=== PATIENT | male | born 1960 | race Caucasian/White ===

== ENCOUNTER 2020-11-02 22:56 | Inpatient (IN) | payer BC, SELFPAY ==
[2020-11-03 00:22] VITALS: BMI 36.6
[2020-11-03 01:56] LABS: PTT 27.2 sec (22.9-36.1); Prothrombin Time 13.5 sec (12.0-14.7)
[2020-11-03 02:10] LABS: ALT (SGPT) 14 U/L (8-55); AST (SGOT) 17 U/L (5-34); Albumin 3.7 g/dL (3.4-4.8); Alkaline Phosphatase 95 U/L (40-110); Anion Gap 14 mmol/L (10-20); BUN (Urea Nitrogen) 15 mg/dL (8.4-25.7); Bilirubin, Total 0.7 mg/dL (0.2-1.2); Calc. Creatinine Clearance 146 mL/min (70-130); Calcium 8.5 mg/dL (7.8-10.44); Carbon Dioxide 23 mmol/L (23-31); Chloride 105 mmol/L (98-107); Globulin 3.1 g/dL (2.4-3.5); Glucose 113 mg/dL (80-115); Magnesium 2.3 mg/dL (1.6-2.6); Potassium 4.1 mmol/L (3.5-5.1); Protein, Total 6.8 g/dL (5.8-8.1); Sodium 138 mmol/L (136-145)
[2020-11-03 02:17] LABS: #Eosinphils 0.1 thou/uL (0.0-0.7); #Lymphocytes 1.8 thou/uL (1.20-3.40); #Monocytes 0.9 thou/uL (0.11-0.59); #Neutrophils 3.6 thou/uL (1.40-6.50); %Basophils 0.3 % (0.0-1.0); %Eosinophils 1.7 % (0.0-10.0); %Lymphocytes 28.5 % (21.0-51.0); %Monocytes 14.6 % (0.0-10.0); Hemoglobin 15.3 g/dL (14.0-18.0); Mean Corpuscular HGB CONC 35.2 g/dL (32.0-36.0); Mean Corpuscular Hemoglobin 29.6 pg (27.0-31.0); Platelet Count Less than 2 thou/uL (130-400); Platelet Morphology Comment Appears Decreased; RBC Distribution Width 12.4 % (11.5-14.5); Red Blood Cell (RBC) Count 5.16 mill/uL (4.70-6.10); Reflex for Review?? NO; White Blood Cell (WBC) Count 6.5 thou/uL (4.8-10.8)
[2020-11-03] MEDS ORDERED: HYDROcodone/Acetaminophen 5/325 mg Tablet PO PRN (02:31)
[2020-11-03] MEDS ORDERED: Ondansetron PF 4 MG/2 ML Vial IVP PRN (02:31)
[2020-11-03] MEDS ORDERED: hydrALAZINE 20 MG/ML VIAL SLOW IVP PRN (02:31)
[2020-11-03] MEDS ORDERED: Labetalol HCl 100 MG/20 ML VIAL SLOW IVP PRN (02:31)
[2020-11-03] MEDS ORDERED: cloNIDine 0.1 MG TAB PO PRN (02:31)
[2020-11-03] MEDS ORDERED: Promethazine HCl 12.5 MG in Sodium Chloride 0.9% 50 ML IVPB PRN (02:31)
[2020-11-03] MEDS ORDERED: Electrolyte Replacement Protocol 1 EACH FS PRN (02:45)
--- NOTE | 2020-11-03 02:45 | PDOC.HHP ---
Hospitalist HPI - History of Present Illness Rash History of Present Illness: Patient is a 60 year old male with PMH metastatic prostate cancer, HTN who presents as transfer from [facility] for rash, thrombocytopenia. Patient has history of metastatic prostate cancer diagnosed about 2 years ago in [facility], he had a prostate surgery at that time but also had metastases to spine for which he declined treatment and has not followed up. Today at work he noticed bruising in arms and a petechial rash on legs, presented for evaluation. At [facility] ED, labs significant for WBC of 6, platelet count of 5, patient transferred here for further workup and care. Hospitalist ROS - Review of Systems Constitutional: reports: weakness, malaise. denies: fever, chills, sweats, other Eyes: denies: pain, vision change, conjunctivae inflammation, eyelid inflammation, redness, other ENT: denies: ear pain, ear discharge, nose pain, nose discharge, nose congestion, mouth pain, mouth swelling, throat pain, throat swelling, other Respiratory: denies: cough, dry, shortness of breath, hemoptysis, SOB with excertion, pleuritic pain, sputum, wheezing, other Cardiovascular: denies: chest pain, palpitations, orthopnea, paroxysmal noc. dyspnea, edema, light headedness, other Gastrointestinal: denies: nausea, vomiting, abdominal pain, diarrhea, constipation, melena, hematochezia, other Genitourinary: denies: dysuria, frequency, incontinence, hematuria, retention, other Musculoskeletal: denies: neck pain, shoulder pain, arm pain, back pain, hand pain, leg pain, foot pain, other Skin: reports: rash, bruising Neurological: denies: weakness, numbness, incoordination, change in speech, confusion, seizures, other All other systems reviewed; all pertinent +/- noted in HPI/Subj - Medication Medications: HTN medications, patient is not compliant with them Hospitalist History - Past Medical History Other Medical History: HTN metastatic prostate cancer - Past Surgical History Other Surgical History: prostate surgery - Family History Family History: reports: no pertinent history - Social History Smoking Status: Never smoker Alcohol: reports: None Drugs: reports: none - Exam General Appearance: NAD, awake alert Eye: PERRL, anicteric sclera ENT: normocephalic atraumatic, no oropharyngeal lesions, moist mucosa Neck: supple, symmetric, no JVD, no thyromegaly, no lymphadenopathy, no carotid bruit Heart: RRR, no murmur, no gallops, no rubs, normal peripheral pulses Respiratory: CTAB, no wheezes, no rales, no ronchi, normal chest expansion, no tachypnea, normal percussion Gastrointestinal: soft, non-tender, non-distended, normal bowel sounds, no palpable masses, no hepatomegaly, no splenomegaly, no bruit Extremities: no cyanosis, no clubbing, no edema Skin: normal turgor, no lesions Skin - other findings: petechial rash on legs, bruising Neurological: cranial nerve grossly intact, normal sensation to touch, no weakness, no focal deficits, no new deficit Musculoskeletal: normal tone, normal strength, no muscle wasting Psychiatric: normal affect, normal behavior, A&O x 3 Hospitalist Results - Labs Result Diagrams: 11/03/20 01:37 11/03/20 01:37 Lab results: WBC 6.5 thou/uL (4.8-10.8) 11/03/20 01:37 Hgb 15.3 g/dL (14.0-18.0) 11/03/20 01:37 Hct 43.3 % (42.0-52.0) 11/03/20 01:37 MCV 84.0 fL (78.0-98.0) 11/03/20 01:37 Plt Count Less than 2 thou/uL (130-400) L* 11/03/20 01:37 Neutrophils % 55.0 % (42.0-75.0) 11/03/20 01:37 Sodium 138 mmol/L (136-145) 11/03/20 01:37 Potassium 4.1 mmol/L (3.5-5.1) 11/03/20 01:37 Chloride 105 mmol/L (98-107) 11/03/20 01:37 Carbon Dioxide 23 mmol/L (23-31) 11/03/20 01:37 BUN 15 mg/dL (8.4-25.7) 11/03/20 01:37 Creatinine 0.85 mg/dL (0.7-1.3) 11/03/20 01:37 Glucose 113 mg/dL (80-115) 11/03/20 01:37 Calcium 8.5 mg/dL (7.8-10.44) 11/03/20 01:37 Total Bilirubin 0.7 mg/dL (0.2-1.2) 11/03/20 01:37 AST 17 U/L (5-34) 11/03/20 01:37 ALT 14 U/L (8-55) 11/03/20 01:37 Alkaline Phosphatase 95 U/L (40-110) 11/03/20 01:37 Serum Total Protein 6.8 g/dL (5.8-8.1) 11/03/20 01:37 Albumin 3.7 g/dL (3.4-4.8) 11/03/20 01:37 Additional comment: outside records reviewed, see HPI for pertinent positives. Hospitalist H&P A/P - Plan Plan: Patient is a 60 year old male with PMH metastatic prostate cancer, HTN who presents as transfer from [facility] for rash, thrombocytopenia. # history of metastatic prostate cancer # thrombocytopenia Patient has history of metastatic prostate cancer diagnosed about 2 years ago in [facility], he had a prostate surgery at that time but also had metastases to spine for which he declined treatment and has not followed up. Today at work he noticed bruising in arms and a petechial rash on legs, presented for evalua tion. Here platelet count 2. - discussed with patient, he previously declined chemotherapy etc, offered oncology consult and workup but he wants to make appointment with his doctor (Dr Rowan) when he goes home in 2 weeks - will transfuse one unit platelets - consult oncology to determine any further immediate needs for this admission # HTN - patient noncompliant with HTN medications at home, order PRN HTN meds and monitor vital signs # DVT ppx - SCD # GI ppx
[2020-11-03] MEDS: Acetaminophen 325 MG TAB PO PRN (08:17)
[2020-11-03] MEDS: Famotidine 20 MG TAB PO SCH ×2 (08:18→22:10)
[2020-11-03] MEDS ORDERED: Dexamethasone 10 MG/ML VIAL SLOW IVP SCH (09:00)
--- NOTE | 2020-11-03 09:36 | PDOC.HOSPP ---
- Subjective Encounter Date: 11/03/20 Encounter Time: 09:34 Subjective: spontaneous bruising - Objective Vital Signs & Weight: Vital Signs (12 hours) Temp Pulse Pulse Resp BP BP BP 11/03/20 08:00 98.1 F 72 18 175/83 H 11/03/20 04:32 98.4 F 72 18 147/72 H 11/03/20 03:47 98.0 F 70 16 142/69 H 11/03/20 03:43 98.1 F 73 16 164/67 H 11/03/20 03:37 98.1 F 73 16 164/67 H 11/03/20 00:12 98.0 F 84 16 175/93 H Pulse Ox 11/03/20 08:00 95 11/03/20 04:32 11/03/20 03:47 11/03/20 03:43 96 11/03/20 03:37 96 11/03/20 00:12 96 Weight Weight 248 lb 8 oz I&O: 11/02/20 11/03/20 11/04/20 06:59 06:59 06:59 Intake Total 470 Balance 470 Result Diagrams: 11/03/20 01:37 11/03/20 01:37 Hospitalist ROS - Medication Medications: Active Medications Generic Name Dose Route Start Last Admin Trade Name Freq PRN Reason Stop Dose Admin Acetaminophen 650 mg 11/03/20 02:31 11/03/20 08:17 Acetaminophen 325 Mg Tab PO 650 mg Q4H PRN Administration Headache/Fever/Mild Pain (1-3) Famotidine 20 mg 11/03/20 09:00 11/03/20 08:18 Famotidine 20 Mg Tab PO Not Given BID CAROLYN Pantoprazole Sodium 40 mg 11/03/20 09:00 11/03/20 08:17 Pantoprazole 40 Mg Tab PO 40 mg DAILY CAROLYN Administration - Exam General Appearance: awake alert Neck: no JVD Heart: RRR, no murmur Respiratory: CTAB Gastrointestinal: soft, normal bowel sounds Extremities: no edema Skin - other findings: multiple 2-3 cm ecchymosis arms, trunk Hosp A/P (1) Thrombocytopenia Code(s): D69.6 - THROMBOCYTOPENIA, UNSPECIFIED Status: Acute (2) HTN (hypertension) Code(s): I10 - ESSENTIAL (PRIMARY) HYPERTENSION Status: Chronic Qualifiers: Hypertension type: essential hypertension Qualified Code(s): I10 - Essential (primary) hypertension (3) CAD (coronary artery disease) Code(s): I25.10 - ATHSCL HEART DISEASE OF [place] CORONARY ARTERY W/O ANG PCTRS Status: Chronic Qualifiers: Coronary Disease-Associated Artery/Lesion type: [place] artery [place] vs. transplanted heart: [place] heart Associated angina: without angina Qualified Code(s): I25.10 - Atherosclerotic heart disease of [place] coronary artery without angina pectoris (4) Prostate CA Code(s): C61 - MALIGNANT NEOPLASM OF PROST[place] Status: Chronic - Plan non-compliant with meds no Hx blood disorder spoke with hematology,-decadron 40 mg daily x 4oncology
[2020-11-03] MEDS ORDERED: Dexamethasone 4 MG TAB PO SCH (09:45)
--- NOTE | 2020-11-03 15:41 | CON ---
DATE OF CONSULTATION: REASON FOR CONSULTATION: Thrombocytopenia. HISTORY OF PRESENT ILLNESS: Mr. Glez is a 60-year-old gentleman with a history of metastatic prostate cancer status post prostatectomy, who presented to an outlying ER for new onset rash, bruising. He was noted to be thrombocytopenic with a platelet count of 5000. He was transferred to this facility. On arrival, his repeat lab showed a platelet count of less than 2000. His white count and hemoglobin were normal. There were no abnormalities on his chemistries. The patient was admitted for workup for thrombocytopenia. The patient denies any history of low platelet count. No history of bleeding or bruising. No family history of blood disorder. He was diagnosed with prostate cancer 2 years ago. He had a prostatectomy and chose not to seek any further treatment. He apparently had a couple of metastatic lesions on his spine. Today, he does complain of back pain, but denies any epistaxis, hematuria, hemoptysis, or melena. He does have bleeding when he brushes teeth, but he states that is normal. He has poor dentition. The bleeding is not any worse than it normal. PAST MEDICAL HISTORY: 1. Prostate cancer status post prostatectomy. 2. Hypertension. 3. Coronary artery disease. ALLERGIES: NO KNOWN DRUG ALLERGIES. HOME MEDICATIONS: None. FAMILY HISTORY: Father had lung cancer. Uncle had prostate cancer. SOCIAL HISTORY: . Lives with his spouse. He travels between [place] and this area for his job. REVIEW OF SYSTEMS: A 12-point review of system is negative except for noted in HPI. PHYSICAL EXAMINATION: VITAL SIGNS: Temperature is 98.2, pulse is 71, respiratory rate 18, BP is 162/77, and he is 96% on room air. GENERAL: A well-developed, well-nourished male, in no acute distress. HEENT: Normocephalic and atraumatic. Pupils equal and reactive to light. NECK: Supple. CV: Regular rate and rhythm. LUNGS: Clear. ABDOMEN: Distended, but soft. Bowel sounds are positive. EXTREMITIES: No clubbing or cyanosis. SKIN: He has petechiae in his bilateral lower extremities. NEUROLOGIC: Nonfocal. PERTINENT LABORATORY DATA AND X-RAYS: WBCs 6.5, hemoglobin 15.3, hematocrit 43.3, platelet count is less than 2000, 55% neutrophils, 28% lymphocytes, and 14% monocytes. PT is 13.5, INR is 1, and PTT is 27.2. Sodium 138, potassium 4.1, chloride 105, CO2 is 23, BUN is 15, creatinine 0.85, and calcium 8.5. Magnesium 2.3. Bilirubin 0.7, AST is 17, ALT is 14, alkaline phosphatase is 95, serum total protein 6.8, albumin 3.7, and globulin 3.1. ASSESSMENT: 1. Thrombocytopenia. 2. History of prostate cancer. DISCUSSION: The patient has been started on high-dose steroids. He has received 40 of dexamethasone and should receive a total of 4 days. He unfortunately did receive a transfusion of platelets. I would recommend no further transfusion as he has no bleeding issues. He denies any recent antibiotics, change in medications, or herbal supplements. He has no history of cirrhosis or portal hypertension or splenomegaly. There is no palpable hepatosplenomegaly on exam. This is likely ITP. The plan will be again to continue steroids for 4 days and follow up in our clinic to repeat the lab. The patient was also encouraged to follow up with us to discuss prostate cancer treatment. He is hesitant to stay more than one more night. If he chooses to go home tomorrow, we would recommend continuing steroids in the outpatient setting and having us see him next week. Case has been discussed with Dr. Andrew. The patient has been instructed on bleeding precautions. Thank you for the consult. Job ID: [id number] MTDD
[2020-11-04 05:33] LABS: Anion Gap 15 mmol/L (10-20); BUN (Urea Nitrogen) 20 mg/dL (8.4-25.7); Calc. Creatinine Clearance 136 mL/min (70-130); Calcium 9.2 mg/dL (7.8-10.44); Carbon Dioxide 19 mmol/L (23-31); Chloride 105 mmol/L (98-107); Glucose 200 mg/dL (80-115); Potassium 4.2 mmol/L (3.5-5.1); Sodium 135 mmol/L (136-145)
[2020-11-04 05:40] LABS: #Lymphocytes 0.9 thou/uL (1.20-3.40); #Monocytes 0.3 thou/uL (0.11-0.59); %Basophils 0.1 % (0.0-1.0); %Eosinophils 0.1 % (0.0-10.0); %Monocytes 1.8 % (0.0-10.0); %Neutrophils 91.9 % (42.0-75.0); Hemoglobin 16.4 g/dL (14.0-18.0); Mean Corpuscular HGB CONC 35.4 g/dL (32.0-36.0); Mean Corpuscular Hemoglobin 29.9 pg (27.0-31.0); Mean Corpuscular Volume 84.6 fL (78.0-98.0); Mean Platelet Volume 13.6 fL (7.4-10.4); Platelet Count 2 thou/uL (130-400); Platelet Morphology Comment Appears Decreased; RBC Distribution Width 12.7 % (11.5-14.5); RBC Morphology Normal; Red Blood Cell (RBC) Count 5.47 mill/uL (4.70-6.10); White Blood Cell (WBC) Count 15.3 thou/uL (4.8-10.8)
[2020-11-04] MEDS: Dexamethasone 4 MG TAB PO SCH (09:17)
[2020-11-04] MEDS: Acetaminophen 325 MG TAB PO PRN ×2 (09:18→22:10)
[2020-11-04] MEDS: Famotidine 20 MG TAB PO SCH ×2 (09:19→20:07)
--- NOTE | 2020-11-04 12:37 | PDOC.HOSPP ---
- Subjective Encounter Date: 11/04/20 Subjective: The patient had no major bleeding. He complained of bleeding gums while brushing his teeth. - Objective Vital Signs & Weight: Vital Signs (12 hours) Temp Pulse Resp BP Pulse Ox 11/04/20 08:10 98.1 F 83 18 137/76 95 Weight Weight 248 lb 8 oz I&O: 11/03/20 11/04/20 11/05/20 06:59 06:59 06:59 Intake Total 470 640 Balance 470 640 Result Diagrams: 11/04/20 04:37 11/04/20 04:37 Hospitalist ROS - Medication Medications: Active Medications Generic Name Dose Route Start Last Admin Trade Name Freq PRN Reason Stop Dose Admin Acetaminophen 650 mg 11/03/20 02:31 11/04/20 09:18 Acetaminophen 325 Mg Tab PO 650 mg Q4H PRN Administration Headache/Fever/Mild Pain (1-3) Clonidine 0.1 mg 11/03/20 02:31 11/03/20 22:24 Clonidine 0.1 Mg Tab PO 0.1 mg BID PRN Administration SBP > 160 use second Dexamethasone 40 mg 11/04/20 08:00 11/04/20 09:17 Dexamethasone 4 Mg Tab PO 11/06/20 08:01 40 mg QAM-WM CAROLYN Administration Famotidine 20 mg 11/03/20 09:00 11/04/20 09:19 Famotidine 20 Mg Tab PO Not Given BID CAROLYN Hydralazine HCl 10 mg 11/03/20 02:31 11/03/20 23:47 Hydralazine 20 Mg/Ml Vial SLOW IVP 10 mg Q6H PRN Administration SBP GREATER THAN 160 Pantoprazole Sodium 40 mg 11/03/20 09:00 11/04/20 09:17 Pantoprazole 40 Mg Tab PO 40 mg DAILY CAROLYN Administration - Exam General Appearance: awake alert ENT: normocephalic atraumatic Heart: RRR Respiratory: normal chest expansion, no tachypnea Extremities: no cyanosis Neurological: cranial nerve grossly intact, no new deficit Hosp A/P (1) Acute ITP Code(s): D69.3 - IMMUNE THROMBOCYTOPENIC PURPURA Status: Acute (2) CAD (coronary artery disease) Code(s): I25.10 - ATHSCL HEART DISEASE OF [place] CORONARY ARTERY W/O ANG PCTRS Status: Chronic Qualifiers: Coronary Disease-Associated Artery/Lesion type: [place] artery [place] vs. transplanted heart: [place] heart Associated angina: without angina Qualified Code(s): I25.10 - Atherosclerotic heart disease of [place] coronary artery without angina pectoris (3) HTN (hypertension) Code(s): I10 - ESSENTIAL (PRIMARY) HYPERTENSION Status: Chronic Qualifiers: Hypertension type: essential hypertension Qualified Code(s): I10 - Essential (primary) hypertension (4) Prostate CA Code(s): C61 - MALIGNANT NEOPLASM OF PROSTATE Status: Chronic - Plan Idiopathic severe thrombocytopenia likely secondary to ITP. No evidence of leukopenia or anemia. No systemic symptoms. No major bleeding. Continue high-dose dexamethasone.
[2020-11-05] MEDS: Acetaminophen 325 MG TAB PO PRN (03:58)
[2020-11-05 06:58] LABS: Hemoglobin 16.4 g/dL (14.0-18.0); Mean Corpuscular HGB CONC 34.1 g/dL (32.0-36.0); Mean Corpuscular Volume 85.2 fL (78.0-98.0); Mean Platelet Volume 11.7 fL (7.4-10.4); Platelet Count 12 thou/uL (130-400); RBC Distribution Width 12.9 % (11.5-14.5); Red Blood Cell (RBC) Count 5.64 mill/uL (4.70-6.10); White Blood Cell (WBC) Count 25.5 thou/uL (4.8-10.8)
[2020-11-05 06:59] LABS: Band 4 % (5-11); Lymphocytes 4 % (21-51); MDiff Complete? YES; Monocytes 5 % (0-10); Neutrophil 87 % (42-75); Platelet Morphology Comment Appears Decreased
[2020-11-05 07:04] LABS: Anion Gap 17 mmol/L (10-20); BUN (Urea Nitrogen) 25 mg/dL (8.4-25.7); Calc. Creatinine Clearance 111 mL/min (70-130); Calcium 9.3 mg/dL (7.8-10.44); Carbon Dioxide 19 mmol/L (23-31); Chloride 105 mmol/L (98-107); Glucose 236 mg/dL (80-115); Potassium 4.7 mmol/L (3.5-5.1); Sodium 136 mmol/L (136-145)
[2020-11-05] MEDS: Famotidine 20 MG TAB PO SCH (08:28)
[2020-11-05] MEDS: Dexamethasone 4 MG TAB PO SCH (09:59)
--- NOTE | 2020-11-05 12:03 | PDOC.DS.DS ---
Provider - Provider Date of Admission: 11/03/20 13:20 Date of Discharge: 11/05/20 Admitting Provider: Toni Leyva MD Primary Care Physician: NO PCP PROVIDER Course - Hospital Course Hospital Course: The patient is a 60-year-old male with past medical history of metastatic prostate cancer and hypertension who was sent to the hospital for evaluation of gingival bleeding and petechial rash. His platelet level was found to be below 2000. Patient did not have any systemic symptoms. His CBC did not show any other evidence of cytopenias. Oncology service consulted and recommended management with dexamethasone pulse for ITP. The patient received dexamethasone for 3 days in the hospital leading to improvement of respiratory level greater than 10,000. He will receive the last dose as an outpatient. Follow-up with oncology was recommended. Resuscitation Status: 11/03/20 02:28 Resuscitation Status Routine Resuscitation Status: FULL: Full Resuscitation - Labs Lab Results: 11/05/20 06:32 11/05/20 06:32 Abnormal Lab Results - Last 48 hrs 11/04/20 04:37: Sodium 135 L, Carbon Dioxide 19 L 11/04/20 04:37: WBC 15.3 H, Plt Count 2 L*, MPV 13.6 H, Neutrophils % 91.9 H, Lymphocytes % 6.0 L, Neutrophils # 14.0 H, Lymphocytes # 0.9 L, Plt Morphology Comment Appears Decreased L 11/05/20 06:32: Carbon Dioxide 19 L 11/05/20 06:32: WBC 25.5 H, Plt Count 12 L*, MPV 11.7 H, Neutrophils % (Manual) 87 H, [place] % (Manual) 4 L, Lymphocytes % (Manual) 4 L, Plt Morphology Comment Appears Decreased L - Physical Exam Vitals: Vital Signs (12 hours) Temp Pulse Resp BP Pulse Ox 11/05/20 08:10 98.5 F 71 18 147/84 H 96 Weight Weight 248 lb 8 oz Physical Exam: The patient was seen and examined on the day of discharge. Problem - Problem (1) Acute ITP Code(s): D69.3 - IMMUNE THROMBOCYTOPENIC PUR[place]URA Status: Acute (2) CAD (coronary artery disease) Code(s): I25.10 - ATHSCL HEART DISEASE OF [place] CORONARY ARTERY W/O ANG PCTRS Status: Chronic Qualifiers: Coronary Disease-Associated Artery/Lesion type: [place] artery [place] vs. transplanted heart: [place] heart Associated angina: without angina Qualified Code(s): I25.10 - Atherosclerotic heart disease of [place] coronary artery without angina pectoris (3) HTN (hypertension) Code(s): I10 - ESSENTIAL (PRIMARY) HYPERTENSION Status: Chronic Qualifiers: Hypertension type: essential hypertension Qualified Code(s): I10 - Essential (primary) hypertension (4) Prostate CA Code(s): C61 - MALIGNANT NEOPLASM OF PROSTATE Status: Chronic Plan - Discharge Medications Prescriptions: Dexamethasone [Decadron] 40 mg PO DAILY #10 tab Amlodipine [Norvasc] 10 mg PO DAILY #30 tab Home Medications: Medication Instructions Recorded Confirmed Type Amlodipine [Norvasc] 10 mg PO DAILY #30 tab 11/05/20 Rx Dexamethasone [Decadron] 40 mg PO DAILY #10 tab 11/05/20 Rx Allergies: No Known Allergies Allergy (Verified 11/03/20 00:35) - Follow up Plan Referrals: Radha Martin MD [Active] - 11/07/20 2:45 am PROVIDER,NO PCP [Primary Care Provider] - Disposition: HOME Quality - Care Measures CORE MEASURES:: N/A
[2020-11-05 12:41] VITALS: BP 157/79; TEMP 98.1
== END 2020-11-05 13:23 | disposition home or self-care (01) | DRG 813 ==
LOC: ONC 11-03 00:07 → OBSVTOIN 11-03 13:20
PROVIDERS: ADMIT Internal Medicine; ATTEND Internal Medicine
PROC: 30233R1 Transfusion of Nonautologous Platelets into Peripheral Vein, Percutaneous Approach (ICD-10-PCS; principal; 2020-11-03)
DX: D69.3 Immune thrombocytopenic purpura (principal); C79.51 Secondary malignant neoplasm of bone; I25.10 Atherosclerotic heart disease of native coronary artery without angina pectoris; I10 Essential (primary) hypertension; Z20.822 Contact with and (suspected) exposure to COVID-19; Z85.46 Personal history of malignant neoplasm of prostate
CPT/HCPCS: 36415; 36430; 80048; 80053; 83735; 85025; 85610; 85730; 86850; 86900; 86901; J0360; J1100; J8540; P9035

== ENCOUNTER 2020-11-07 17:08 | Emergency (ER) | payer BC ==
[2020-11-07 18:46] LABS: Hemoglobin 16.2 g/dL (14.0-18.0); Mean Corpuscular HGB CONC 34.6 g/dL (32.0-36.0); Mean Corpuscular Hemoglobin 29.7 pg (27.0-31.0); Mean Corpuscular Volume 85.8 fL (78.0-98.0); Mean Platelet Volume 13.1 fL (7.4-10.4); Platelet Count 2 thou/uL (130-400); RBC Distribution Width 12.7 % (11.5-14.5); Red Blood Cell (RBC) Count 5.46 mill/uL (4.70-6.10); White Blood Cell (WBC) Count 16.7 thou/uL (4.8-10.8)
[2020-11-07 18:58] LABS: ALT (SGPT) 23 U/L (8-55); AST (SGOT) 15 U/L (5-34); Albumin 3.9 g/dL (3.4-4.8); Alkaline Phosphatase 89 U/L (40-110); Anion Gap 16 mmol/L (10-20); BUN (Urea Nitrogen) 25 mg/dL (8.4-25.7); Bilirubin, Total 0.5 mg/dL (0.2-1.2); Calc. Creatinine Clearance 0 mL/min (70-130); Carbon Dioxide 25 mmol/L (23-31); Chloride 104 mmol/L (98-107); Globulin 3.2 g/dL (2.4-3.5); Glucose 163 mg/dL (80-115); Potassium 4.5 mmol/L (3.5-5.1); Protein, Total 7.1 g/dL (5.8-8.1); Sodium 140 mmol/L (136-145)
[2020-11-07 19:11] LABS: Band 3 % (5-11); Lymphocytes 4 % (21-51); MDiff Complete? YES; Metamyelocyte 1 % (0-0); Monocytes 10 % (0-10); Neutrophil 76 % (42-75); Platelet Morphology Comment Appears Decreased; Polychromasia SLIGHT = 2-3 cells (100X) (0-2/hpf); Reactive Lymphocytes 6 % (0-10)
[2020-11-07] MEDS ORDERED: Acetaminophen 500 MG TAB ONE (19:27)
[2020-11-07] MEDS ORDERED: diphenhydrAMINE 25 MG CAP ONE (19:28)
[2020-11-07] MEDS ORDERED: Dexamethasone 10 MG/ML VIAL ONE (19:31)
[2020-11-07] MEDS ORDERED: OCTAGAM 10% 90 GM in Admixture Fee 1 EACH IVPB SCH (20:00)
== END 2020-11-07 23:26 | disposition home or self-care (01) ==
LOC: ERS 17:08
DX: D69.6 Thrombocytopenia, unspecified (principal); I10 Essential (primary) hypertension; Z79.899 Other long term (current) drug therapy
CPT/HCPCS: 36415; 36430; 80053; 85025; 86850; 86900; 86901; 96365; 96366; J1100; J1568; P9035; Q0163

== ENCOUNTER 2020-11-20 09:42 | Day surgery (SDC) | payer BC ==
[2020-11-20] MEDS ORDERED: Acetaminophen 500 MG TAB PO SCH (10:00)
[2020-11-20] MEDS ORDERED: diphenhydrAMINE 25 MG CAP PO SCH (10:00)
[2020-11-20 13:31] VITALS: BP 123/64; TEMP 98.4
== END 2020-11-20 13:31 | disposition home or self-care (01) ==
LOC: ONC/OP 09:42
PROVIDERS: ATTEND Internal Medicine Hematology & Oncology
PROC: 30233R1 Transfusion of Nonautologous Platelets into Peripheral Vein, Percutaneous Approach (ICD-10-PCS; principal; 2020-11-20)
DX: D69.6 Thrombocytopenia, unspecified (principal); D64.9 Anemia, unspecified
CPT/HCPCS: 36430; 86850; 86900; 86901; P9035; Q0163

== ENCOUNTER 2020-11-22 12:06 | Day surgery (SDC) | payer BC ==
[2020-11-22] MEDS ORDERED: Acetaminophen 500 MG TAB PO SCH (12:30)
[2020-11-22] MEDS ORDERED: diphenhydrAMINE 25 MG CAP PO SCH (12:30)
[2020-11-22] MEDS ORDERED: Sodium Chloride 0.9% 20 ML ONE (13:57)
[2020-11-22 14:14] VITALS: BP 145/72; TEMP 98.7
== END 2020-11-22 14:14 | disposition home or self-care (01) ==
LOC: ONC/OP 12:06
PROVIDERS: ATTEND Internal Medicine Hematology & Oncology
PROC: 30233R1 Transfusion of Nonautologous Platelets into Peripheral Vein, Percutaneous Approach (ICD-10-PCS; principal; 2020-11-22)
DX: D69.6 Thrombocytopenia, unspecified (principal); D64.9 Anemia, unspecified
CPT/HCPCS: 36430; 86850; 86900; 86901; P9035; Q0163

== ENCOUNTER 2020-11-23 08:16 | Day surgery (SDC) | payer BC ==
[2020-11-23] MEDS ORDERED: Sodium Chloride 0.9% 20 ML ONE (08:59)
[2020-11-23] MEDS ORDERED: diphenhydrAMINE 25 MG CAP PO SCH (09:30)
[2020-11-23] MEDS ORDERED: Acetaminophen 500 MG TAB PO SCH (09:30)
[2020-11-23 11:05] VITALS: TEMP 97.7
[2020-11-23 11:07] VITALS: BP 162/89
== END 2020-11-23 11:08 | disposition home or self-care (01) ==
LOC: ONC/OP 08:16
PROVIDERS: ATTEND Internal Medicine Hematology & Oncology
PROC: 30233R1 Transfusion of Nonautologous Platelets into Peripheral Vein, Percutaneous Approach (ICD-10-PCS; principal; 2020-11-23)
DX: D69.6 Thrombocytopenia, unspecified (principal)
CPT/HCPCS: 36430; 86850; 86900; 86901; P9035; Q0163

== ENCOUNTER 2020-11-24 09:19 | Inpatient (IN) | payer BC ==
[2020-11-24] MEDS ORDERED: diphenhydrAMINE 50 MG/ML VIAL IVP SCH (16:45)
[2020-11-24] MEDS ORDERED: Acetaminophen 500 MG TAB PO SCH (16:45)
[2020-11-24 16:48] LABS: Mean Corpuscular HGB CONC 34.8 g/dL (32.0-36.0); Mean Corpuscular Hemoglobin 29.1 pg (27.0-31.0); Mean Corpuscular Volume 83.6 fL (78.0-98.0); Mean Platelet Volume 16.1 fL (7.4-10.4); Platelet Count 4 thou/uL (130-400); RBC Distribution Width 12.3 % (11.5-14.5); Red Blood Cell (RBC) Count 4.81 mill/uL (4.70-6.10); White Blood Cell (WBC) Count 3.1 thou/uL (4.8-10.8)
[2020-11-24 16:58] VITALS: BMI 36.1
[2020-11-24 17:21] LABS: ALT (SGPT) 20 U/L (8-55); AST (SGOT) 17 U/L (5-34); Albumin 3.2 g/dL (3.4-4.8); Alkaline Phosphatase 88 U/L (40-110); Anion Gap 14 mmol/L (10-20); BUN (Urea Nitrogen) 14 mg/dL (8.4-25.7); Bilirubin, Total 0.5 mg/dL (0.2-1.2); Calc. Creatinine Clearance 98 mL/min (70-130); Calcium 8.4 mg/dL (7.8-10.44); Carbon Dioxide 20 mmol/L (23-31); Chloride 105 mmol/L (98-107); Globulin 7.5 g/dL (2.4-3.5); Glucose 90 mg/dL (80-115); Potassium 3.9 mmol/L (3.5-5.1); Protein, Total 10.7 g/dL (5.8-8.1); Sodium 135 mmol/L (136-145)
--- NOTE | 2020-11-24 20:02 | PDOC.HHP ---
Hospitalist HPI thrombocytopenia, bleeding History of Present Illness: This is a 60-year-old male patient with a history of metastatic prostate cancer to his back, ITP who presented to the emergency room as a direct admit from oncology clinic for thrombocytopenia. The patient experienced a recent ITP flare in 11/03/2020 with a platelet count of less than 2. He received dexamethasone 40 mg x 4 days, platelet transfusion and IVIG with resolution. On 11/13 the patient's platelets improved to 141. On 11/20, the patient started exp eriencing hematuria, epistaxis and bleeding gums. His platelet count was 1, so he underwent platelet transfusion and IVIG in oncology clinic. He went for follow-up today and repeat CBC showed a platelet count of 1. He received a 1/2 dose of IVIG in oncology clinic. Since there is a shortage of IVIG in the clinic, Dr. Geronimo wanted to admit him for platelet transfusion, steroids, IVIG and Rituxan. Patient states his hematuria has started to clear up. He no longer has bleeding gums. He denies any blood in his stools, he denies abdominal pain, dizziness, lightheadedness, chest pain, shortness of breath. He was previously taking aspirin and ibuprofen for pain, but no longer is taking these. Patient reports history of prostate cancer that was diagnosed 2 years ago in [place]. He states that he was having difficulty urinating and difficulty having an erection. His PSA was high and his prostate biopsy confirmed cancer. He underwent a prostatectomy, and also reports a bone biopsy that was positive for cancer. He is reluctant to pursue treatment because of family members that received chemotherapy and had a poor quality of life. Allergies/Adverse Reactions: Allergy/AdvReac Type Severity Reaction Status Date / Time No Known Allergies Allergy Verified 11/03/20 00:35 Past History: PMHx: PSHx: FHx: Social: Hospitalist HPI ROS Constitutional: denies: fever, chills Eyes: denies: pain, vision change ENT: denies: ear pain, ear discharge Respiratory: denies: cough, dry, shortness of breath Cardiovascular: denies: chest pain, palpitations, orthopnea Gastrointestinal: denies: nausea, vomiting, abdominal pain, diarrhea Genitourinary: reports: hematuria. denies: dysuria, frequency, incontinence Musculoskeletal: denies: neck pain, shoulder pain Skin: denies: rash, lesions Hospitalist Exam Vitals: Vital Signs (12 hours) Temp Pulse Resp BP Pulse Ox 11/24/20 15:48 97.6 F 78 14 157/84 H 98 Weight Weight 245 lb General Appearance: NAD, awake alert General - other findings: obese Eye: PERRL, anicteric sclera ENT: normocephalic atraumatic, no oropharyngeal lesions Neck: no JVD Heart: RRR, no murmur, no gallops Respiratory: CTAB, no wheezes, no rales, no ronchi Gastrointestinal: soft, non-tender, non-distended, normal bowel sounds Extremities: no cyanosis, no clubbing, no edema Skin: normal turgor, no lesions, no rashes Neurological: cranial nerve grossly intact, normal sensation to touch, no weakness Musculoskeletal: normal tone, normal strength, no muscle wasting Hospitalist Results Result Diagrams: 11/24/20 16:34 11/24/20 16:34 Lab results: Laboratory Last Values WBC 3.1 thou/uL (4.8-10.8) L 11/24/20 16:34 RBC 4.81 mill/uL (4.70-6.10) 11/24/20 16:34 Hgb 14.0 g/dL (14.0-18.0) 11/24/20 16:34 Hct 40.2 % (42.0-52.0) L 11/24/20 16:34 MCV 83.6 fL (78.0-98.0) 11/24/20 16:34 MCH 29.1 pg (27.0-31.0) 11/24/20 16:34 MCHC 34.8 g/dL (32.0-36.0) 11/24/20 16:34 RDW 12.3 % (11.5-14.5) 11/24/20 16:34 Plt Count 4 thou/uL (130-400) L* 11/24/20 16:34 MPV 16.1 fL (7.4-10.4) H 11/24/20 16:34 Sodium 135 mmol/L (136-145) L 11/24/20 16:34 Potassium 3.9 mmol/L (3.5-5.1) 11/24/20 16:34 Chloride 105 mmol/L (98-107) 11/24/20 16:34 Carbon Dioxide 20 mmol/L (23-31) L 11/24/20 16:34 Anion Gap 14 mmol/L (10-20) 11/24/20 16:34 BUN 14 mg/dL (8.4-25.7) 11/24/20 16:34 Creatinine 1.24 mg/dL (0.7-1.3) 11/24/20 16:34 Estimated GFR (MDRD) 59 11/24/20 16:34 Glucose 90 mg/dL (80-115) 11/24/20 16:34 Calcium 8.4 mg/dL (7.8-10.44) 11/24/20 16:34 Total Bilirubin 0.5 mg/dL (0.2-1.2) 11/24/20 16:34 AST 17 U/L (5-34) 11/24/20 16:34 ALT 20 U/L (8-55) 11/24/20 16:34 Alkaline Phosphatase 88 U/L (40-110) 11/24/20 16:34 Serum Total Protein 10.7 g/dL (5.8-8.1) H 11/24/20 16:34 Albumin 3.2 g/dL (3.4-4.8) L 11/24/20 16:34 Globulin 7.5 g/dL (2.4-3.5) H 11/24/20 16:34 Albumin/Globulin Ratio 0.4 g/dL (1.2-2.2) L 11/24/20 16:34 Blood Type O POSITIVE 11/24/20 16:00 Antibody Screen NEGATIVE 11/24/20 16:00 Hospitalist H&P A/P Plan: 60-year-old male patient with past medical history of metastatic prostate cancer, ITP who was admitted from oncology clinic due to persistent thrombocytopenia ITP exacerbation -Repeat platelet count is 4. Patient received platelet pheresis. Will order dexamethasone 40 mg starting tomorrow. Patient supposed to get a repeat IVIG transfusion tomorrow. -Dr. Geronimo is trying to get Rituxan approved which will hopefully happen by Friday. Metastatic prostate cancer -Currently refusing any treatment. Patient states he will get a bone scan as an outpatient and pending those results we will decide on further treatment Leukopenia - WBC of 3.1, will monitor for now
--- NOTE | 2020-11-24 21:30 | CON ---
DATE OF CONSULTATION: REASON FOR CONSULT: ITP. HISTORY OF PRESENT ILLNESS: Mr. Glez is a pleasant 60-year-old gentleman with a past history of metastatic prostate cancer and ITP. He first had a flare three years ago, which resolved with steroids. He recurred in mid October and was admitted to this facility, where he received Decadron 40 mg x4 doses. His platelets improved briefly. He was then started on IVIG. His platelets got as high as 141. He returned to our clinic on Friday with complaints of bleeding in his mouth, nose, and in urine. he had a petechial rash. He received IVIG this week and a platelet transfusion. Unfortunately, he responded poorly. This weekend, today, his platelet count was back down to 1 from 62,000 yesterday. He is due to start Rituxan on Friday in our clinic. Due to his resistance to treatment, he was admitted over the weekend to continue the IVIG and platelet transfusion. He was at bedside and denies any complaints at this time. Denies any bleeding. He does have easy bruising and still has a petechial rash on his trunk. PAST MEDICAL AND SURGICAL HISTORY: 1. Metastatic prostate cancer, status post prostatectomy in 2017 and 18. 2. History of ITP. 3. Hypertension. 4. History of depression. 5. COPD. ALLERGIES: NO KNOWN DRUG ALLERGIES. HOME MEDICATIONS: Norvasc 10 mg daily. FAMILY HISTORY: Father had lung cancer. SOCIAL HISTORY: , has 3 children. He works in [place], but his family lives in [place] and he travels back and forth between the two states. No alcohol, illicit drug use. REVIEW OF SYSTEMS: A 12-point review of systems is negative except for noted in HPI. PHYSICAL EXAMINATION: VITAL SIGNS: He is afebrile. Vital signs per chart. GENERAL: Well-developed, well-nourished male, in no acute distress. HEENT: Normocephalic, atraumatic. Pupils are equal and reactive to light. No oral lesions. NECK: Supple. CV: Regular rate and rhythm. LUNGS: Clear. ABDOMEN: Obese, nontender. Bowel sounds are positive. EXTREMITIES: No clubbing or cyanosis. SKIN: He has a petechial rash and ecchymosis. NEUROLOGIC: Nonfocal. PERTINENT LABS AND X-RAYS: In our clinic, his CBC showed a white count of 3.3, a hemoglobin of 12.4, hematocrit 38.4, and a platelet count of 1. ASSESSMENT: Recurrent ITP, resistant to steroids and IVIG. PLAN: The patient is being admitted for IVIG over the weekend as a bridge to Rituxan Friday. He has received two doses this week with improvement to 62,000 and then overnight failure to 1000. He will have a daily CBC and will be monitored closely for bleeding. Case has been discussed with Dr. Geronimo and Dr. Martin, and we will follow his hospital course closely. Job ID: [id number] [facility]
[2020-11-25 04:42] LABS: Hemoglobin 11.9 g/dL (14.0-18.0); Mean Corpuscular HGB CONC 35.2 g/dL (32.0-36.0); Mean Corpuscular Hemoglobin 29.5 pg (27.0-31.0); Mean Corpuscular Volume 83.9 fL (78.0-98.0); Mean Platelet Volume 14.8 fL (7.4-10.4); Platelet Count 4 thou/uL (130-400); RBC Distribution Width 12.3 % (11.5-14.5); Red Blood Cell (RBC) Count 4.03 mill/uL (4.70-6.10); White Blood Cell (WBC) Count 2.6 thou/uL (4.8-10.8)
[2020-11-25 04:54] LABS: Anion Gap 10 mmol/L (10-20); BUN (Urea Nitrogen) 18 mg/dL (8.4-25.7); Calc. Creatinine Clearance 102 mL/min (70-130); Calcium 8.5 mg/dL (7.8-10.44); Carbon Dioxide 25 mmol/L (23-31); Chloride 105 mmol/L (98-107); Glucose 115 mg/dL (80-115); Potassium 4.1 mmol/L (3.5-5.1); Sodium 136 mmol/L (136-145)
[2020-11-25] MEDS ORDERED: diphenhydrAMINE 50 MG/ML VIAL IVP SCH (06:30)
[2020-11-25] MEDS ORDERED: Acetaminophen 500 MG TAB PO SCH (06:30)
[2020-11-25] MEDS ORDERED: ADMIXTURE FEE IVPB SCH ×2 (06:45→10:45)
[2020-11-25] MEDS ORDERED: OCTAGAM IVPB SCH ×2 (06:45→10:45)
[2020-11-25] MEDS: Dexamethasone 4 MG TAB PO SCH (09:23)
--- NOTE | 2020-11-25 10:26 | PDOC.MOPN ---
Interval History: no new bleeding. no gum bleeding, no blood in stools, no hematuria. no new signifcant bruises. still with small petechia - Vital Signs Vital Signs: Vital Signs (12 hours) Temp Pulse Pulse Resp BP BP Pulse Ox 11/25/20 07:18 98.2 F 69 18 163/89 H 96 11/25/20 04:00 98.1 F 76 16 139/82 95 11/24/20 23:11 98.0 F 89 16 126/64 96 Weight Weight 245 lb - Physical Exam General: Alert, Cooperative HEENT: Atraumatic Lungs: Clear to auscultation Cardiovascular: Regular rate Extremities: No edema, Other (petechiae noted on legs and trunk) Psych/Mental Status: Mental status NL - Labs Result Diagrams: 11/25/20 04:16 11/25/20 04:16 Lab results: Laboratory Results - last 24 hr 11/25/20 04:16: Sodium 136, Potassium 4.1, Chloride 105, Carbon Dioxide 25, Anion Gap 10, BUN 18, Creatinine 1.19, Estimated GFR (MDRD) 62, Glucose 115, Calcium 8.5 11/25/20 04:16: WBC 2.6 L, RBC 4.03 L, Hgb 11.9 L, Hct 33.8 L, MCV 83.9, MCH 29.5, MCHC 35.2, RDW 12.3, Plt Count 4 L*, MPV 14.8 H 11/24/20 16:34: Sodium 135 L, Potassium 3.9, Chloride 105, Carbon Dioxide 20 L, Anion Gap 14, BUN 14, Creatinine 1.24, Estimated GFR (MDRD) 59, Glucose 90, Calcium 8.4, Total Bilirubin 0.5, AST 17, ALT 20, Alkaline Phosphatase 88, Serum Total Protein 10.7 H, Albumin 3.2 L, Globulin 7.5 H, Albumin/Globulin Ratio 0.4 L 11/24/20 16:34: WBC 3.1 L, RBC 4.81, Hgb 14.0, Hct 40.2 L, MCV 83.6, MCH 29.1, MCHC 34.8, RDW 12.3, Plt Count 4 L*, MPV 16.1 H 11/24/20 16:00: Blood Type O POSITIVE, Antibody Screen NEGATIVE A/P - Problem (1) Acute ITP Current Visit: No Code(s): D69.3 - IMMUNE THROMBOCYTOPENIC PURPURA Status: Acute (2) Thrombocytopenia Current Visit: No Code(s): D69.6 - THROMBOCYTOPENIA, UNSPECIFIED Status: Acute (3) HTN (hypertension) Current Visit: No Code(s): I10 - ESSENTIAL (PRIMARY) HYPERTENSION Status: Chronic Qualifiers: Hypertension type: essential hypertension Qualified Code(s): I10 - Essential (primary) hypertension (4) Prostate CA Current Visit: No Code(s): C61 - MALIGNANT NEOPLASM OF PROSTATE Status: Chronic - Plan Plan: 1. IVIg today, daily cbc 2. cont sreroids 3. plan rituxan friday or when available 4. d/c to home when plts on the rise
--- NOTE | 2020-11-25 16:40 | PDOC.HOSPP ---
- Subjective Encounter Date: 11/25/20 Encounter Time: 16:00 Subjective: pt seen this afternoon. he denies any c/o, no nausea, no blood in the stool/urine. No abd discomfort. on IVIG infusion. - Objective Vital Signs & Weight: Vital Signs (12 hours) Temp Pulse Resp BP BP Pulse Ox 11/25/20 11:33 98.1 F 89 18 183/95 H 95 11/25/20 07:18 98.2 F 69 18 163/89 H 96 Weight Weight 245 lb I&O: 11/24/20 11/25/20 11/26/20 06:59 06:59 06:59 Intake Total 490 1300 Balance 490 1300 Result Diagrams: 11/25/20 04:16 11/25/20 04:16 Hospitalist ROS - Medication Medications: Active Medications Generic Name Dose Route Start Last Admin Trade Name Freq PRN Reason Stop Dose Admin Dexamethasone 40 mg 11/25/20 09:00 11/25/20 09:23 Dexamethasone 4 Mg Tab PO 40 mg QAM CAROLYN Administration Immune Globulin 40 gm/ Immune 550 mls @ 0 mls/hr 11/25/20 10:45 11/25/20 11:16 Globulin 5 gm/ Immune Globulin IVPB 11/25/20 23:59 550 mls 10 gm/ Miscellaneous WILLCALL CAROLYN Administration Medication As Directed Hospitalist Exam Vitals: Vital Signs (12 hours) Temp Pulse Resp BP BP Pulse Ox 11/25/20 11:33 98.1 F 89 18 183/95 H 95 11/25/20 07:18 98.2 F 69 18 163/89 H 96 Weight Weight 245 lb General Appearance: NAD, awake alert Eye: PERRL, anicteric sclera ENT: normocephalic atraumatic Neck: supple, no JVD Heart: RRR, normal peripheral pulses Respiratory: CTAB, normal chest expansion Gastrointestinal: soft, normal bowel sounds Neurological: cranial nerve grossly intact, no weakness Psychiatric: normal affect, normal behavior, A&O x 3 Hosp A/P - Plan 60-year-old male patient with past medical history of metastatic prostate cancer, ITP who was admitted from oncology clinic due to persistent thrombocytopenia ITP exacerbation -Repeat platelet count is 4. Patient received platelet pheresis. Will order dexamethasone 40 mg starting tomorrow. - IVIG transfusion ongoing. -Dr. Geronimo is trying to get Rituxan approved which will hopefully happen by Friday. Metastatic prostate cancer -Currently refusing any treatment. Patient states he will get a bone scan as an outpatient and pending those results we will decide on further treatment Leukopenia - WBC of 3.1, will monitor for now when plts improved, then plan for dc.
[2020-11-25 17:55] LABS: SARS-CoV-2 PCR by NAA Not Detected (NotDetected)
[2020-11-25] MEDS ORDERED: Acetaminophen 325 MG TAB PO PRN (23:41)
[2020-11-26 04:04] LABS: #Lymphocytes 0.7 thou/uL (1.20-3.40); #Monocytes 0.2 thou/uL (0.11-0.59); #Neutrophils 8.4 thou/uL (1.40-6.50); %Basophils 0.2 % (0.0-1.0); %Lymphocytes 6.9 % (21.0-51.0); %Monocytes 2.5 % (0.0-10.0); %Neutrophils 90.3 % (42.0-75.0); Hemoglobin 12.5 g/dL (14.0-18.0); Mean Corpuscular HGB CONC 32.8 g/dL (32.0-36.0); Mean Corpuscular Hemoglobin 27.4 pg (27.0-31.0); Mean Corpuscular Volume 83.6 fL (78.0-98.0); Mean Platelet Volume 11.2 fL (7.4-10.4); Platelet Count 20 thou/uL (130-400); RBC Distribution Width 12.2 % (11.5-14.5); Red Blood Cell (RBC) Count 4.57 mill/uL (4.70-6.10); White Blood Cell (WBC) Count 9.3 thou/uL (4.8-10.8)
[2020-11-26 07:25] VITALS: TEMP 97.6
--- NOTE | 2020-11-26 08:55 | PDOC.MOPN ---
Interval History: no bleeding, no complaints. - Vital Signs Vital Signs: Vital Signs (12 hours) Temp Pulse Resp BP Pulse Ox 11/26/20 07:24 97.6 F 78 18 177/85 H 95 11/25/20 23:31 98.0 F 88 16 166/81 H 94 L Weight Weight 245 lb - Physical Exam General: Alert, Cooperative, No acute distress Lungs: Clear to auscultation Cardiovascular: Regular rate Abdomen: Normal bowel sounds Extremities: No clubbing, No edema Skin: No rashes Neurological: Normal gait, Normal speech - Labs Result Diagrams: 11/26/20 03:44 11/25/20 04:16 Lab results: Laboratory Results - last 24 hr 11/26/20 03:44: WBC 9.3, RBC 4.57 L, Hgb 12.5 L, Hct 38.2 L, MCV 83.6, MCH 27.4, MCHC 32.8, RDW 12.2, Plt Count 20 L*, MPV 11.2 H, Neutrophils % 90.3 H, Neutrophils % (Manual) Not Reportable, Lymphocytes % 6.9 L, Monocytes % 2.5, Eosinophils % 0.0, Basophils % 0.2, Neutrophils # 8.4 H, Lymphocytes # 0.7 L, Monocytes # 0.2, Eosinophils # 0.0, Basophils # 0.0 11/25/20 09:30: SARS CoV-2 Rapid Source Sputum, SARS-CoV-2 RNA ([place]) Not Detected A/P - Problem (1) Acute ITP Current Visit: No Code(s): D69.3 - IMMUNE THROMBOCYTOPENIC PURPURA Status: Acute (2) Thrombocytopenia Current Visit: No Code(s): D69.6 - THROMBOCYTOPENIA, UNSPECIFIED Status: Acute (3) HTN (hypertension) Current Visit: No Code(s): I10 - ESSENTIAL (PRIMARY) HYPERTENSION Status: Chronic Qualifiers: Hypertension type: essential hypertension Qualified Code(s): I10 - Essential (primary) hypertension (4) Prostate CA Current Visit: No Code(s): C61 - MALIGNANT NEOPLASM OF PROSTATE Status: Chronic - Plan Plan: 1. home today 2. steroids today before d/c 3. rituxan tomorrow in office 4. f/u in office tomorrow for cbc
[2020-11-26] MEDS ORDERED: Amlodipine 5 MG TAB PO SCH (09:15)
[2020-11-26] MEDS ORDERED: hydrALAZINE 20 MG/ML VIAL SLOW IVP PRN (09:17)
[2020-11-26] MEDS: Dexamethasone 4 MG TAB PO SCH (10:22)
[2020-11-26 10:48] VITALS: BP 150/82
--- NOTE | 2020-11-26 12:58 | PDOC.DS.DS ---
Provider Date of Admission: 11/24/20 15:07 Admitting Provider: Asha Salcido MD Primary Care Physician: Phan Geronimo MD Course Hospital Course: 60-year-old male patient with medical history of metastatic prostate cancer, ITP who was admitted from oncology clinic due to persistent thrombocytopenia ITP exacerbation after steroid and IVIG, count is 20 K. - Rituxan on Friday in the office Hypertension -Is on home dose of Norvasc 10 mg daily which he will be continuing. Metastatic prostate cancer -Follow-up with oncologist. Clinically stable to be discharged home today. Discharge time over 30 minutes. Lab Results: 11/26/20 03:44 11/25/20 04:16 Abnormal Lab Results - Last 48 hrs 11/24/20 16:34: WBC 3.1 L, Hct 40.2 L, Plt Count 4 L*, MPV 16.1 H 11/24/20 16:34: Sodium 135 L, Carbon Dioxide 20 L, Serum Total Protein 10.7 H, Albumin 3.2 L, Globulin 7.5 H, Albumin/Globulin Ratio 0.4 L 11/25/20 04:16: WBC 2.6 L, RBC 4.03 L, Hgb 11.9 L, Hct 33.8 L, Plt Count 4 L*, MPV 14.8 H 11/26/20 03:44: RBC 4.57 L, Hgb 12.5 L, Hct 38.2 L, Plt Count 20 L*, MPV 11.2 H, Neutrophils % 90.3 H, Lymphocytes % 6.9 L, Neutrophils # 8.4 H, Lymphocytes # 0.7 L Vitals: Vital Signs (12 hours) Temp Pulse Resp BP Pulse Ox 11/26/20 10:47 150/82 H 11/26/20 10:23 78 11/26/20 07:24 97.6 F 78 18 177/85 H 95 Weight Weight 245 lb Physical Exam: The patient was seen and examined on the day of discharge. Plan Home Medications: Medication Instructions Recorded Confirmed Type Amlodipine [Norvasc] 10 mg PO DAILY 11/26/20 11/26/20 History Allergies: No Known Allergies Allergy (Verified 11/03/20 00:35) Activity:: Activity as Tolerated Nourishment:: Regular Diet Referrals: Phan Geronimo MD [Primary Care Provider] - 11/27/20 Disposition: HOME Quality CORE MEASURES:: N/A
[2020-11-27] MEDS ORDERED: Amlodipine 5 MG TAB PO SCH (09:00)
[2020-11-29 14:14] LABS: Hep B Surface AG-Rflx Sendout Negative (Negative); Hepatitis B Core Total Positive (Negative); Hepatitis B Surface AB-Sendout Reactive (.)
== END 2020-11-26 13:00 | disposition home or self-care (01) | DRG 813 ==
LOC: EDSTATUS 15:03 → SURG A 15:07 → ONC 15:37
PROVIDERS: ADMIT Internal Medicine; ATTEND Internal Medicine
PROC: 30233R1 Transfusion of Nonautologous Platelets into Peripheral Vein, Percutaneous Approach (ICD-10-PCS; principal; 2020-11-24)
DX: D69.3 Immune thrombocytopenic purpura (principal); C79.51 Secondary malignant neoplasm of bone; Z20.822 Contact with and (suspected) exposure to COVID-19; I10 Essential (primary) hypertension; C61 Malignant neoplasm of prostate; D72.819 Decreased white blood cell count, unspecified; F32.9 Major depressive disorder, single episode, unspecified; J44.9 Chronic obstructive pulmonary disease, unspecified; Z79.899 Other long term (current) drug therapy; D64.9 Anemia, unspecified
CPT/HCPCS: 36415; 36430; 80048; 80053; 85025; 85027; 86704; 86705; 86706; 86707; 86850; 86900; 86901; 87340; 87350; 87635; J1200; J1568; J8540; P9035; Q0163; U0003; U0005

== ENCOUNTER → 2020-11-28 | Day surgery (SDC) | payer BC ==
[~2020-11-28] MED LIST: Acetaminophen 500 MG TAB PO SCH; Sodium Chloride 0.9% 20 ML ONE; diphenhydrAMINE 25 MG CAP PO SCH
[2020-11-28 10:25] VITALS: BP 173/80; TEMP 98.3
== END ==
LOC: ONC/OP 08:45
PROVIDERS: ATTEND Internal Medicine Hematology & Oncology
PROC: 30233R1 Transfusion of Nonautologous Platelets into Peripheral Vein, Percutaneous Approach (ICD-10-PCS; principal; 2020-11-28)
DX: D69.6 Thrombocytopenia, unspecified (principal); D64.9 Anemia, unspecified
CPT/HCPCS: 36430; 86850; 86900; 86901; P9035; Q0163

== ENCOUNTER 2020-11-29 09:09 | Day surgery (SDC) | payer BC ==
[2020-11-29] MEDS ORDERED: Acetaminophen 500 MG TAB PO SCH (09:45)
[2020-11-29] MEDS ORDERED: diphenhydrAMINE 25 MG CAP PO SCH (09:45)
[2020-11-29] MEDS ORDERED: Sodium Chloride 0.9% 20 ML ONE (12:22)
[2020-11-29 16:49] VITALS: BP 168/89; TEMP 97.9
== END 2020-11-29 17:06 | disposition home or self-care (01) ==
LOC: ONC/OP 09:09
PROVIDERS: ATTEND Internal Medicine Hematology & Oncology
PROC: 30233R1 Transfusion of Nonautologous Platelets into Peripheral Vein, Percutaneous Approach (ICD-10-PCS; principal; 2020-11-29)
DX: D69.6 Thrombocytopenia, unspecified (principal); D64.9 Anemia, unspecified
CPT/HCPCS: 36430; 86850; 86900; 86901; P9035; Q0163

== ENCOUNTER 2020-11-30 09:08 | Day surgery (SDC) | payer BC ==
[2020-11-30] MEDS ORDERED: Acetaminophen 500 MG TAB PO PRN (10:05)
[2020-11-30] MEDS ORDERED: diphenhydrAMINE 25 MG CAP PO PRN (10:05)
[2020-11-30 10:49] VITALS: TEMP 98.1
[2020-11-30 13:37] VITALS: BP 159/83
== END 2020-11-30 13:38 | disposition home or self-care (01) ==
LOC: ONC/OP 09:08
PROVIDERS: ATTEND Internal Medicine Hematology & Oncology
PROC: 30233R1 Transfusion of Nonautologous Platelets into Peripheral Vein, Percutaneous Approach (ICD-10-PCS; principal; 2020-11-30)
DX: D69.6 Thrombocytopenia, unspecified (principal); D64.9 Anemia, unspecified
CPT/HCPCS: 36430; 86850; 86900; 86901; P9035; Q0163

== ENCOUNTER 2020-12-01 09:07 | Day surgery (SDC) | payer BC ==
[2020-12-01] MEDS ORDERED: Acetaminophen 500 MG TAB PO SCH (09:15)
[2020-12-01] MEDS ORDERED: diphenhydrAMINE 25 MG CAP PO SCH (09:15)
[2020-12-01] MEDS ORDERED: Sodium Chloride 0.9% 20 ML ONE (09:29)
[2020-12-01 13:01] VITALS: BP 173/88; TEMP 97.8
== END 2020-12-01 13:12 | disposition home or self-care (01) ==
LOC: ONC/OP 09:07
PROVIDERS: ATTEND Internal Medicine Hematology & Oncology
PROC: 30233R1 Transfusion of Nonautologous Platelets into Peripheral Vein, Percutaneous Approach (ICD-10-PCS; principal; 2020-12-01)
DX: D69.6 Thrombocytopenia, unspecified (principal); D64.9 Anemia, unspecified
CPT/HCPCS: 36430; 86850; 86900; 86901; P9035; Q0163

== ENCOUNTER 2020-12-02 08:49 | Day surgery (SDC) | payer BC ==
[2020-12-02] MEDS ORDERED: Acetaminophen 500 MG TAB PO PRN (09:03)
[2020-12-02] MEDS ORDERED: diphenhydrAMINE 25 MG CAP PO PRN (09:03)
[2020-12-02 11:11] VITALS: BP 150/72; TEMP 97.9
[2020-12-02 11:26] LABS: Hemoglobin 12.5 g/dL (14.0-18.0); Mean Corpuscular HGB CONC 33.9 g/dL (32.0-36.0); Mean Corpuscular Hemoglobin 28.9 pg (27.0-31.0); Mean Corpuscular Volume 85.3 fL (78.0-98.0); Mean Platelet Volume 8.6 fL (7.4-10.4); Platelet Count 59 thou/uL (130-400); RBC Distribution Width 12.7 % (11.5-14.5); Red Blood Cell (RBC) Count 4.33 mill/uL (4.70-6.10); White Blood Cell (WBC) Count 17.1 thou/uL (4.8-10.8)
[2020-12-02 12:19] LABS: Band 7 % (5-11); Lymphocytes 15 % (21-51); MDiff Complete? YES; Monocytes 4 % (0-10); Neutrophil 74 % (42-75); Platelet Morphology Comment Appears Decreased; Polychromasia SLIGHT = 2-3 cells (100X) (0-2/hpf); Toxic Granulation SLIGHT
== END 2020-12-02 17:26 | disposition home or self-care (01) ==
LOC: ONC/OP 08:49 → ONC 09:02 → ONC/OP 17:26
PROVIDERS: ATTEND Internal Medicine Hematology & Oncology
PROC: 30233R1 Transfusion of Nonautologous Platelets into Peripheral Vein, Percutaneous Approach (ICD-10-PCS; principal; 2020-12-02)
DX: D69.6 Thrombocytopenia, unspecified (principal); D64.9 Anemia, unspecified
CPT/HCPCS: 36415; 36430; 85025; 86850; 86900; 86901; P9035; Q0163

== ENCOUNTER 2020-12-03 12:05 | Day surgery (SDC) | payer BC ==
[2020-12-03] MEDS ORDERED: diphenhydrAMINE 25 MG CAP PO SCH (13:15)
[2020-12-03] MEDS ORDERED: Acetaminophen 500 MG TAB PO SCH (13:15)
[2020-12-03 15:14] LABS: #Eosinphils 0.1 thou/uL (0.0-0.7); #Lymphocytes 1.4 thou/uL (1.20-3.40); #Monocytes 2.1 thou/uL (0.11-0.59); #Neutrophils 14.9 thou/uL (1.40-6.50); %Eosinophils 0.4 % (0.0-10.0); %Lymphocytes 7.4 % (21.0-51.0); %Monocytes 11.5 % (0.0-10.0); %Neutrophils 80.8 % (42.0-75.0); Hemoglobin 12.8 g/dL (14.0-18.0); Mean Corpuscular HGB CONC 34.5 g/dL (32.0-36.0); Mean Corpuscular Hemoglobin 29.3 pg (27.0-31.0); Platelet Count 65 thou/uL (130-400); RBC Distribution Width 12.4 % (11.5-14.5); Red Blood Cell (RBC) Count 4.37 mill/uL (4.70-6.10); White Blood Cell (WBC) Count 18.4 thou/uL (4.8-10.8)
[2020-12-03 15:48] VITALS: BP 135/81; TEMP 97.6
== END 2020-12-03 16:20 | disposition home or self-care (01) ==
LOC: ONC/OP 12:05 → ONC 12:06 → ONC/OP 16:20
PROVIDERS: ATTEND Internal Medicine Hematology & Oncology
PROC: 30233R1 Transfusion of Nonautologous Platelets into Peripheral Vein, Percutaneous Approach (ICD-10-PCS; principal; 2020-12-03)
DX: D69.6 Thrombocytopenia, unspecified (principal); D64.9 Anemia, unspecified
CPT/HCPCS: 36415; 36430; 85025; 86850; 86900; 86901; P9035; Q0163

== ENCOUNTER 2021-01-04 07:44 | Outpatient (CLI) | payer BC ==
[2021-01-04 08:27] LABS: Estimated GFR-MDRD - POC Greater than 90
[2021-01-04] MEDS ORDERED: Iopamidol 370 76% 100 ML VIAL ONE (14:42)
== END 2021-01-04 07:45 | disposition home or self-care (01) ==
LOC: CT 07:44
PROVIDERS: ATTEND Internal Medicine Hematology & Oncology
DX: C61 Malignant neoplasm of prostate (principal); D69.3 Immune thrombocytopenic purpura
CPT/HCPCS: 74177; 78306; 82565; A9503; Q9967

== ENCOUNTER 2021-10-08 09:06 | Outpatient (CLI) | payer BC | END 2021-10-08 09:07 | disposition home or self-care (01) | LOC: NM 09:06 | PROVIDERS: ATTEND Internal Medicine Hematology & Oncology | DX: C61 Malignant neoplasm of prostate (principal); D69.3 Immune thrombocytopenic purpura | CPT/HCPCS: 78306; A9503 ==

== ENCOUNTER 2022-08-05 08:34 | Outpatient (CLI) | payer BC ==
[2022-08-05] MEDS ORDERED: Iopamidol 370 76% 100 ML VIAL ONE (14:29)
== END 2022-08-05 08:35 | disposition home or self-care (01) ==
LOC: CT 08:34
PROVIDERS: ATTEND Internal Medicine Hematology & Oncology
DX: C61 Malignant neoplasm of prostate (principal); M54.50 Low back pain, unspecified; D69.3 Immune thrombocytopenic purpura; J45.909 Unspecified asthma, uncomplicated; M47.814 Spondylosis without myelopathy or radiculopathy, thoracic region; M48.061 Spinal stenosis, lumbar region without neurogenic claudication; M47.816 Spondylosis without myelopathy or radiculopathy, lumbar region
CPT/HCPCS: 72129; 72132; 74177; 78306; 82565; A9503; Q9967

== ENCOUNTER 2023-12-05 12:49 | Day surgery (SDC) | payer BC ==
[2023-12-05] MEDS: diphenhydrAMINE 25 MG CAP PO SCH (14:13)
[2023-12-05] MEDS: Acetaminophen 500 MG TAB PO SCH (14:13)
[2023-12-05 17:46] VITALS: BP 169/75; TEMP 97.7
== END 2023-12-05 17:48 | disposition home or self-care (01) ==
LOC: ONC/OP 12:49
PROVIDERS: ATTEND Nurse Practitioner Family
DX: D64.9 Anemia, unspecified (principal); D69.6 Thrombocytopenia, unspecified
CPT/HCPCS: 36430; 86850; 86900; 86901; P9016